=== PATIENT | male | born 1965 | race Two or more races ===

== ENCOUNTER 2018-11-06 10:21 | Emergency (ER) | payer OTHER ==
[~2018-11-06] VITALS: Ht 165.1 cm; Wt 77.4 kg
[2018-11-06 14:17] VITALS: BP 133/94
== END 2018-11-06 14:19 | disposition home or self-care (01) ==
LOC: ED 12:46
DX: F41.1 Generalized anxiety disorder (principal); F32.9 Major depressive disorder, single episode, unspecified; R42 Dizziness and giddiness; R20.0 Anesthesia of skin; R11.10 Vomiting, unspecified
CPT/HCPCS: 36415; 70450; 80053; 85025; 93005; 99284